=== PATIENT | female | born 1990 | race Caucasian/White ===

== ENCOUNTER 2020-11-20 09:04 | Emergency (ER) | payer MEDICAID ==
[~2020-11-20] VITALS: Ht 162.6 cm; Wt 79.0 kg
[2020-11-20] MEDS ORDERED: ASPIRIN 325MG EC TABLET PO ONE (09:30)
[2020-11-20 09:36] LABS: EOSINOPHILS % 2.5 % (0.0-5.0); HEMATOCRIT. 36.9 % (36.0-48.0); HEMOGLOBIN. 12.7 g/dL (12.0-16.0); LYMPHOCYTES % 40.3 % (20.0-50.0); MEAN CORPUSCULAR HEMOGLOBIN 32.4 pg (28.0-32.0); MEAN CORPUSCULAR VOLUME 93.6 fL (81.0-99.0); MEAN PLATELET VOLUME 7.9 fl (7.4-10.4); MONOCYTES % 4.1 % (2.0-8.0); NEUTROPHILS % 52.1 % (40.0-76.0); PLATELET 270 x1000/uL (130-400); RED BLOOD CELL COUNT 3.94 mill/uL (4.2-5.4)
[2020-11-20 09:43] LABS: CHLORIDE 104 mEq/L (98-107)
[2020-11-20 09:45] LABS: HCG SCREEN NEGATIVE
[2020-11-20 11:36] VITALS: BP 96/66
[2020-11-20] MEDS ORDERED: IBUP-2028 MT (18:26)
== END 2020-11-20 11:38 | disposition home or self-care (01) ==
LOC: ER 09:04
DX: R07.89 Other chest pain (principal); E78.00 Pure hypercholesterolemia, unspecified; F32.9 Major depressive disorder, single episode, unspecified; F41.9 Anxiety disorder, unspecified; Z98.890 Other specified postprocedural states
CPT/HCPCS: 36415; 71045; 80053; 83880; 84484; 84703; 85025; 85379; 93005; 99285; Z7610

== ENCOUNTER 2020-11-20 13:43 | Emergency (ER) | payer MEDICAID ==
[~2020-11-20] VITALS: Ht 172.7 cm; Wt 78.0 kg
[2020-11-20] MEDS ORDERED: MAGNESIUM/ALUMINUM HYDROXIDE/SIMETHICONE 30ML UDC PO STA (16:19)
[2020-11-20] MEDS ORDERED: FAMOTIDINE 20MG TABLET PO ONE (16:30)
[2020-11-20] MEDS ORDERED: IBUP-2028 MT (18:26)
[2020-11-20 18:58] VITALS: BP 110/65
== END 2020-11-20 19:47 | disposition home or self-care (01) ==
LOC: ER 13:43
DX: R07.89 Other chest pain (principal); K80.80 Other cholelithiasis without obstruction; F41.9 Anxiety disorder, unspecified; E78.00 Pure hypercholesterolemia, unspecified
CPT/HCPCS: 36415; 76705; 84484; 93005; 99285

== ENCOUNTER 2024-10-03 11:46 | Emergency (ER) | payer SELFPAY ==
[~2024-10-03] VITALS: Ht 165.1 cm; Wt 73.0 kg
[~2024-10-03 11:46] MED LIST: IBUP-2028 MT
[2024-10-03 11:49] VITALS: O2SAT 99
[2024-10-03 11:52] VITALS: BP 110/78; PULSE 60; RESP 16; TEMP 36.8; O2SAT 99
[2024-10-03 12:35] LABS: BASOPHILS % 3.1 % (0.0-2.0); EOSINOPHILS % 4.6 % (0.0-5.0); HEMATOCRIT. 35.5 % (36.0-48.0); LYMPHOCYTES % 37.7 % (20.0-50.0); MEAN CORPUSCULAR HEMOGLOBIN 32.3 pg (28.0-32.0); MEAN CORPUSCULAR HGB CONC 33.7 g/dL (31.0-37.0); MEAN CORPUSCULAR VOLUME 95.7 fL (81.0-99.0); MEAN PLATELET VOLUME 7.9 fl (7.4-10.4); MONOCYTES % 4.7 % (2.0-8.0); NEUTROPHILS % 49.9 % (40.0-76.0); PLATELET 261 x1000/uL (130-400); RED BLOOD CELL COUNT 3.71 mill/uL (4.2-5.4); RED CELL DISTRIBUTION WIDTH 14.2 % (11.6-14.6)
[2024-10-03 12:48] LABS: CHLORIDE 102 mEq/L (98-107); POTASSIUM 3.9 mEq/L (3.5-5.1); SODIUM 138 mEq/L (136-145)
[2024-10-03 12:49] LABS: CALCIUM 9.7 mg/dL (8.7-10.4); CARBON DIOXIDE 29 mEq/L (21-32)
[2024-10-03 12:54] LABS: CREATININE 0.9 mg/dL (0.6-1.0); GLUCOSE 90 mg/dL (70-105); HCG SCREEN NEGATIVE; UREA NITROGEN BLOOD 11 mg/dL (9-23)
[2024-10-03 12:56] LABS: ALANINE AMINOTRANSFERASE 52 IU/L (10-49); ALBUMIN 4.6 g/dL (3.2-4.8); ASPARTATE AMINOTRANSFERASE 42 IU/L (<34); BILIRUBIN TOTAL 0.8 mg/dL (0.1-1.0); PROTEIN TOTAL 7.9 g/dL (6.0-8.3)
[2024-10-03] MEDS: IOHEXOL-300 100 ML BOTTLE ONE (14:49)
== END 2024-10-03 16:12 | disposition home or self-care (01) ==
LOC: ER 11:46
DX: R47.81 Slurred speech (principal); R59.0 Localized enlarged lymph nodes; R20.0 Anesthesia of skin
CPT/HCPCS: 80053; 84703; 85025; 36415; 70450; 70491; 99285; Q9967; Z7610